=== PATIENT | female | born 1950 | race Caucasian/White ===

== ENCOUNTER 2016-07-16 13:49 | Emergency (ER) | payer OTHER ==
[2016-07-16] MEDS ORDERED: ONDANSETRON 4 MG/2 ML VIAL IVP ONE (14:21)
[2016-07-16] MEDS ORDERED: MECLIZINE HCL 25 MG TAB PO ONE (14:22)
--- NOTE | 2016-07-16 14:26 | EDPHY ---
H & P Time Seen by Provider: 07/16/16 14:03 HPI/ROS: CHIEF COMPLAINT: Dizziness HISTORY OF PRESENT ILLNESS: 66-year-old woman was at her physical therapist getting a right leg massaged 11:00 a.m.. She left , and around noon started suddenly feeling dizziness. She describes it as a sense of moving when she is still. It is worse with standing up or turning her head to the right. It is associated with nausea and feeling hot and sweaty. Her blood pressure was about 100/60 around 1 o'clock. Symptoms severe. Better and worse as noted above. REVIEW OF SYSTEMS: Eye: no change in vision ENT: no sore throat or hearing changes Cardiac: no chest pain or syncope Pulmonary: no cough or SOB Abdomen: Nausea but no vomiting or abdominal pain Musculoskeletal: No neck pain, right lower leg pain continues after muscle strain. Skin: no rash Neuro: no headache Constitutional: no fever : no urinary symptoms A comprehensive 10 point review of systems is otherwise negative aside from elements mentioned in the history of present illness. PAST MEDICAL HISTORY: Includes hypertension, history of atrial fibrillation with implanted Holter monitor, right knee replacement. Recent right calf muscle strain. Social history: Negative tobacco General Appearance: Alert and conversant, cooperative. Eyes: No scleral icterus. ENT, Mouth: Normal mucous membranes. Normal tympanic membranes bilaterally. Respiratory: Normal respiratory effort, breath sounds equal, lungs are clear to auscultation. Cardiovascular: Regular rate and rhythm. Gastrointestinal: Abdomen is soft and non tender. Neurological: Alert and oriented x3. Normally conversant. Face symmetric, normal movement and sensation in all extremities. [id number] normal bilaterally, no pronator drift, fluent speech. Pupils equal and normally reactive. Extraocular motion intact. Skin: Warm and dry, no rashes. Musculoskeletal: Mild right calf tenderness but soft compartments. Psychiatric: Not agitated. Emergency Department course/MDM: Patient presents with typical peripheral vertigo, with relatively rapid onset of symptoms associated with nausea and worse with certain movements and does extinguish and has a normal neurologic examination. Patient requesting EKG which is performed. She is concerned about DVT in her right leg, ultrasound is ordered. Oral meclizine 25, Zofran 4 mg IV. I think that central vertigo is unlikely. 1526: US negative per [facility] for DVT, small hematoma. Results discussed with the patient. Does not have evidence of DVT. I think dysrhythmia would be unlikely. I think central vertigo including but not limited to vertebral dissection or cerebellar stroke is unlikely. Mildly hypertensive in the emergency department, I think hypertensive emergency is unlikely. Her episode of systolic 100 prior to arrival was likely due to vagal response to her vertigo symptoms. @1500: 142/94, @1644: 151/90. Smoking Status: Never smoked Constitutional: Initial Vital Signs Temperature (C) 36.3 C 07/16/16 13:52 Heart Rate 55 L 07/16/16 13:52 Respiratory Rate 16 07/16/16 13:52 O2 Sat (%) 97 07/16/16 13:52 O2 Delivery Mode Room Air Allergies/Adverse Reactions: YOGURT Allergy (Uncoded 05/03/14 10:33) Home Medications: Medication Instructions Recorded Cyanocobalamin [Vitamin B12 (*)] 100 mcg PO DAILY 04/26/14 Felodipine [Plendil 5 MG (*)] 5 mg PO DAILY 04/26/14 Herbals/Supplements -Info Only 1 ea PO DAILY 04/26/14 Multivitamins [Multivitamin (*)] 1 each PO DAILY 04/26/14 Propylene Glycol [Systane Balance] 1 drop OP PRN PRN 04/26/14 Acetaminophen [Tylenol 325mg (*)] 325 - 650 mg PO Q6 PRN #30 tab 05/12/14 Docusate Sodium [Colace 100 MG (*)] 100 mg PO BID #60 cap 05/12/14 Enoxaparin [Lovenox 40 MG (*)] 40 mg SC DAILY #4 syr 05/12/14 HYDROmorphone HCL [Dilaudid 2 mg 2 - 4 mg PO Q4 PRN #100 tab 05/12/14 (*)] Hydrocodone/APAP 5/325 [[place] 1 tab PO Q4 PRN #90 tab 05/12/14 5/325 (*)] Ondansetron Odt [Zofran Odt 4 mg 4 mg PO Q4 PRN #20 tab 05/12/14 (*)] Warfarin Sodium [Coumadin 5MG (*)] 5 mg PO DAILY16 #20 tab 05/12/14 celeCOXIB [Celebrex (*)] 200 mg PO DAILY #20 cap 05/12/14 Meclizine HCl [Meclizine HCl 25 mg 25 mg PO Q6 PRN #20 tab 07/16/16 (RX,OTC)] Ondansetron Odt [Zofran Odt] 4 mg PO Q4PRN #6 tab 07/16/16 Medical Decision Making - Diagnostics EKG Interpretation: 12-lead EKG interpreted by me; official reading is in trace master. My interpretation is sinus rhythm rate 51, no ischemic changes Imaging Results: Imaging Impressions Extremity Venous Study 07/16/16 14:22 Impression: 1. No deep venous thrombosis. 2. Subacute hematoma versus Norman's cyst. Findings discussed with Emergency Department physician, Dr. Kareem Hall on July 162016, at 1524 hours. Differential Diagnosis: Differential diagnosis considered for dizziness including but not limited to peripheral and central causes of vertigo, orthostatic causes including dehydration, and blood loss. - Data Points Laboratory Results: Laboratory Results 07/16/16 14:55 07/16/16 14:55 07/16/16 07/16/16 14:55 14:55 WBC 7.07 10^3/uL 10^3/uL (3.80-9.50) RBC 4.06 10^6/uL L 10^6/uL (4.18-5.33) Hgb 11.8 g/dL L g/dL (12.6-16.3) Hct 35.3 % L % (38.0-47.0) MCV 86.9 fL fL (81.5-99.8) MCH 29.1 pg pg (27.9-34.1) MCHC 33.4 g/dL g/dL (32.4-36.7) RDW 13.0 % % (11.5-15.2) Plt Count 202 10^3/uL 10^3/uL (150-400) MPV 10.9 fL fL (8.7-11.7) Neut % (Auto) 70.4 % % (39.3-74.2) Lymph % (Auto) 20.5 % % (15.0-45.0) [place] % (Auto) 5.8 % % (4.5-13.0) Eos % (Auto) 2.1 % % (0.6-7.6) Baso % (Auto) 0.8 % % (0.3-1.7) Nucleat RBC Rel Count 0.0 % % (0.0-0.2) Absolute Neuts (auto) 4.97 10^3/uL 10^3/uL (1.70-6.50) Absolute Lymphs (auto) 1.45 10^3/uL 10^3/uL (1.00-3.00) Absolute Monos (auto) 0.41 10^3/uL 10^3/uL (0.30-0.80) Absolute Eos (auto) 0.15 10^3/uL 10^3/uL (0.03-0.40) Absolute Basos (auto) 0.06 10^3/uL 10^3/uL (0.02-0.10) Absolute Nucleated RBC 0.00 10^3/uL 10^3/uL (0-0.01) Immature Gran % 0.4 % % (0.0-1.1) Immature Gran # 0.03 10^3/uL 10^3/uL (0.00-0.10) Sodium 130 mEq/L L mEq/L (134-144) Potassium 3.9 mEq/L mEq/L (3.5-5.2) Chloride 96 mEq/L L mEq/L (97-110) Carbon Dioxide 25 mEq/l mEq/l (22-31) Anion Gap 9 mEq/L mEq/L (8-16) BUN 12 mg/dL mg/dL (7-23) Creatinine 0.7 mg/dL mg/dL (0.6-1.0) Estimated GFR > 60 Glucose 101 mg/dL H mg/dL (70-100) Calcium 8.9 mg/dL mg/dL (8.5-10.4) Medications Given: Discontinued Medications Meclizine HCl (Meclizine Hcl) 25 mg PO EDNOW ONE Stop: 07/16/16 14:23 Last Admin: 07/16/16 15:00 Dose: 25 mg Ondansetron HCl (Zofran) 4 mg IVP EDNOW ONE Stop: 07/16/16 14:22 Last Admin: 07/16/16 15:00 Dose: 4 mg Departure - Departure Disposition: Home, Routine, Self-Care Clinical Impression: Vertigo Condition: Good Instructions: Vertigo (ED) Referrals: Florina Santos [Primary Care Provider] - As per Instructions Prescriptions: Meclizine HCl [Meclizine HCl 25 mg (RX,OTC)] 25 mg PO Q6 PRN #20 tab PRN Reason: Dizziness Ondansetron Odt [Zofran Odt] 4 mg PO Q4PRN #6 tab
[2016-07-16] MEDS ORDERED: ONDANSETRON 4 MG/2 ML VIAL ONE (14:27)
--- NOTE | 2016-07-16 14:35 | CPEKG ---
Heart Rate: 51 RR Interval: 1176 P-R Interval: 196 QRSD Interval: 84 QT Interval: 456 QTC Interval: 420 P [place]: 50 QRS [place]: 25 T Wave [place]: 8 EKG Severity - NORMAL ECG - EKG Impression: SINUS RHYTHM Electronically Signed By: Kareem Hall 16-Jul-2016 14:41:05
[2016-07-16 15:08] LABS: % IMMATURE GRANULYOCYTES 0.4 % (0.0-1.1); ABSOLUTE IMMATURE GRANULOCYTES 0.03 10^3/uL (0.00-0.10); ADD DIFF? NO; ADD MORPH? NO; ADD SCAN? NO; ATYPICAL LYMPHOCYTE FLAG 0 (0-99); FRAGMENT RBC FLAG 0 (0-99); HEMATOCRIT 35.3 % (38.0-47.0); HEMOGLOBIN 11.8 g/dL (12.6-16.3); LEFT SHIFT FLG 0 (0-99); LIPEMIA HEMOLYSIS FLAG 80 (0-99); MEAN CELL HEMOGLOBIN 29.1 pg (27.9-34.1); MEAN CELL HEMOGLOBIN CONCENTR. 33.4 g/dL (32.4-36.7); MEAN CELL VOLUME 86.9 fL (81.5-99.8); MEAN PLATELET VOLUME 10.9 fL (8.7-11.7); PLATELET CLUMPS FLAG 10 (0-99); PLATELET COUNT 202 10^3/uL (150-400); RED BLOOD CELL COUNT 4.06 10^6/uL (4.18-5.33)
[2016-07-16 15:41] LABS: ANION GAP 9 mEq/L (8-16); CALCIUM 8.9 mg/dL (8.5-10.4); CARBON DIOXIDE 25 mEq/l (22-31); CHLORIDE 96 mEq/L (97-110); CREATININE 0.7 mg/dL (0.6-1.0); GLOMERULAR FILTRATION RATE > 60; GLUCOSE 101 mg/dL (70-100); POTASSIUM 3.9 mEq/L (3.5-5.2); SODIUM 130 mEq/L (134-144)
[2016-07-16 16:47] VITALS: BP 151/90; PULSE 52; RESP 18; TEMP 98.4; O2SAT 98
== END 2016-07-16 16:44 | disposition home or self-care (01) ==
DX: R42 Dizziness and giddiness (principal); I10 Essential (primary) hypertension; Z79.01 Long term (current) use of anticoagulants
CPT/HCPCS: 93005; 93971; 96374; 99285; J2405

== ENCOUNTER → 2016-11-11 | Outpatient (CLI) | payer OTHER | LOC: FIMAGING 13:21 | PROVIDERS: ATTEND Internal Medicine | DX: Z12.31 Encounter for screening mammogram for malignant neoplasm of breast (principal) | CPT/HCPCS: G0202 ==

== ENCOUNTER 2017-06-28 18:28 | Emergency (ER) | payer OTHER ==
--- NOTE | 2017-06-28 18:38 | EDPHY ---
H & P Stated Complaint: pt concerned for htn today, fatigue h/a Time Seen by Provider: 06/28/17 18:38 - Personal History Current Tetanus/Diphtheria Vaccine: No Current Tetanus Diphtheria and Acellular Pertussis (TDAP): No - Medical/Surgical History Hx Asthma: No Hx Chronic Respiratory Disease: No Hx Diabetes: No Hx Cardiac Disease: Yes Hx Renal Disease: No Hx Cirrhosis: No Hx Alcoholism: No Hx HIV/AIDS: No Hx Splenectomy or Spleen Trauma: No Other PMH: pmh:HTN, implated holter(afib)Dr LEE 2015 - Social History Smoking Status: Never smoked Constitutional: Initial Vital Signs Temperature (C) 36.5 C 06/28/17 18:34 Heart Rate 76 06/28/17 18:34 Respiratory Rate 16 06/28/17 18:34 Blood Pressure 162/90 H 06/28/17 18:34 O2 Sat (%) 97 06/28/17 18:34 O2 Delivery Mode Room Air Allergies/Adverse Reactions: No Known Allergies Allergy (Unverified 06/28/17 18:32) Home Medications: Medication Instructions Recorded Benicar 06/28/17 Carvedilol 06/28/17 Metformin 1000 mg 06/28/17 Spironolactone 06/28/17 amLODIPine BESYLATE [Amlodipine 10 mg PO DAILY #30 tablet 06/28/17 Besylate] Medical Decision Making ED Course/Re-evaluation: CHIEF COMPLAINT: High blood pressure HISTORY OF PRESENT ILLNESS: The patient is a 67 y/o female with a history of hypertension and atrial fibrillation complaining of increased blood pressure today. She was seen by her physician a month ago and had normal blood pressure at this time. She is compliant with her medications and took her morning and evening medications today. She currently has a headache, feels dizzy, and had blurred vision. Denies increased stress, anxiety, illness, trauma, injury. Denies chest pain, abdominal pain, urinary or bowel complaints, numbness, paresthesias, fever. REVIEW OF SYSTEMS: A 10 point review of systems was performed and is negative with the exception of the elements mentioned in the history of present illness. PHYSICAL EXAM: HR, BP, O2 Sat, RR. Temp noted General Appearance: Alert, well hydrated, appropriate, and non-toxic appearing. Head: Atraumatic without scalp tenderness or obvious injury Eyes: Pupils equal, round, reactive to light and accommodation, EOMI, no trauma , no injection. Ears: Clear bilaterally, no perforation, normal landmarks Nose: Atraumatic, no rhinorrhea, clear. Throat: There is no erythema or exudates, no lesions, normal tonsils, mucus membranes moist. Neck: Supple, nontender, no lymphadenopathy. Respiratory: No retractions, no distress, no wheezes, and no accessory muscle use. Lungs are clear to auscultation bilaterally. Cardiovascular: Regular rate and rhythm, no murmurs, rubs, or gallops. Good capillary refill all extremities. Gastrointestinal: Abdomen is soft, nontender, non-distended, no masses, no rebound, no guarding, no peritoneal signs. Musculoskeletal: Normal active ROM of all extremities, atraumatic. Neurological: Alert, appropriate, and interactive. Nonfocal neuro Skin: No rashes, good turgor, no nodules on palpation. Past medical history: Hypertension, atrial fibrillation Past surgical history: Implanted Holter monitor for a-fib Family history: Denies Social history: Family at bedside, lives in [place], employed DIAGNOSTICS/PROCEDURES/CRITICAL CARE TIME: EKG: The 12 lead EKG was interpreted by myself as normal sinus rhythm with a rate of 67. See hard copy and/or "tracemaster" electronic copy for interpretation. DIFFERENTIAL DIAGNOSIS: The differential diagnosis for the patient's dizziness included but was not limited to peripheral and central causes of vertigo, orthostatic causes including dehydration, cardiogenic and neurogenic causes, and blood loss. MEDICAL DECISION MAKING: The patient is a 67 y/o female with a history of hypertension and atrial fibrillation presenting with an increased blood pressure, dizziness, blurred vision, and a headache today. She has a normal physical exam including a normal cardiac exam. She does not have a hypertensive urgency or emergency at this time. I-Stat and EKG ordered. 184: I interpreted EKG as normal sinus rhythm 185: Consulted with Dr. Winn regarding patient's medication. Patient will be prescribed 10mg PO Amlodipine, her first dose will be given now. 185: I-Stat has normal findings. 185: Reassessed patient and discussed normal EKG and I-Stat findings. I have discussed the Amlodipine prescription and follow up with her PCP and contact printer dry film. Return precautions provided; patient is comfortable with this plan. Departure - Departure Disposition: Home, Routine, Self-Care Clinical Impression: Hypertension Qualifiers: Hypertension type: unspecified Qualified Code(s): I10 - Essential (primary) hypertension Condition: Good Instructions: Hypertension (ED) Additional Instructions: 1. Take Amlodipine as prescribed. 2. Follow-up with your primary doctor within 72 hours. 3. Return to the Emergency Department for fever, chest pain, shortness of breath , increasing pain or other worsening of condition. 4. Follow up with a contact printer dry film for further testing, as soon as possible, within one week. We would be happy to reevaluate you and observe you in the hospital at any time. Referrals: Florina Santos [Primary Care Provider] - As per Instructions Hunter Winn MD [Medical Doctor] - As per Instructions Semaj Lee MD [Medical Doctor] - As per Instructions Prescriptions: amLODIPine BESYLATE [Amlodipine Besylate] 10 mg PO DAILY #30 tablet Report Scribed for: Corwin Hopper Report Scribed by: Hollie Reis Date of Report: 06/28/17 Time of Report: 18:39
--- NOTE | 2017-06-28 18:51 | CPEKG ---
Heart Rate: 67 RR Interval: 896 P-R Interval: 188 QRSD Interval: 72 QT Interval: 380 QTC Interval: 401 P [place]: 53 QRS [place]: 56 T Wave [place]: 40 EKG Severity - NORMAL ECG - EKG Impression: SINUS RHYTHM Electronically Signed By: Corwin Hopper 28-Jun-2017 21:56:38
[2017-06-28] MEDS ORDERED: amLODIPine BESYLATE 5 MG TAB PO ONE (18:56)
[2017-06-28 19:15] VITALS: BP 150/93
== END 2017-06-28 19:15 | disposition home or self-care (01) ==
DX: I10 Essential (primary) hypertension (principal)
CPT/HCPCS: 82947-QW

== ENCOUNTER → 2017-09-09 | Outpatient (CLI) | payer OTHER | LOC: FIMAGING 07:06 | PROVIDERS: ATTEND Internal Medicine Cardiovascular Disease | DX: I10 Essential (primary) hypertension (principal) ==

== ENCOUNTER → 2017-11-20 | Outpatient (CLI) | payer OTHER | LOC: FIMAGING 10:14 | PROVIDERS: ATTEND Internal Medicine | DX: Z12.31 Encounter for screening mammogram for malignant neoplasm of breast (principal) ==